=== PATIENT | female | born 1950 | race Caucasian/White ===

== ENCOUNTER → 2018-07-20 | Outpatient (CLI) | payer OTHER ==
[~2018-07-20] MED LIST: GADOBUTROL 10 ML VIAL IVP ONE
== END | disposition home or self-care (01) ==
LOC: FIMAGING 08:59
PROVIDERS: ATTEND Internal Medicine Hematology & Oncology
DX: M16.0 Bilateral primary osteoarthritis of hip (principal); M67.854 Other specified disorders of tendon, left hip; M67.853 Other specified disorders of tendon, right hip; M51.36 Other intervertebral disc degeneration, lumbar region; M47.9 Spondylosis, unspecified; C90.00 Multiple myeloma not having achieved remission
CPT/HCPCS: 73723; A9585

== ENCOUNTER 2018-10-12 05:44 | Inpatient (IN) | payer OTHER ==
[2018-10-12] MEDS ORDERED: TRANEXAMIC ACID 1,000 MG in NS 100 ML IV ONE (06:00)
[2018-10-12] MEDS ORDERED: ROPIVACAINE 0.2% 80 MG, EPINEPHrine 0.2 MG, KETOROLAC TROMETHAMINE 30 MG in SYRINGE 0 ML IU ONE (06:00)
[2018-10-12] MEDS ORDERED: POVIDONE-IODINE 20 ML in SODIUM CL IRRIG SOLUTION 500 ML IRR ONE (06:00)
[2018-10-12] MEDS ORDERED: TRANEXAMIC ACID 3,000 MG in NS (SYRINGE) 50 ML IRR ONE (06:00)
[2018-10-12] MEDS ORDERED: ONDANSETRON 4 MG/2 ML VIAL IVP ONE (06:05)
[2018-10-12] MEDS ORDERED: ACETAMINOPHEN 325 MG TAB PO ONE (06:05)
[2018-10-12] MEDS ORDERED: ceFAZolin 2 GM/DEXTROSE 100 ML IV ONE (06:05)
[2018-10-12] MEDS ORDERED: GABAPENTIN 300 MG CAP PO ONE (06:05)
[2018-10-12] MEDS ORDERED: DEXAMETHASONE 4 MG/ML VIAL IVP ONE (06:05)
[2018-10-12] MEDS ORDERED: FAMOTIDINE 20 MG TAB PO ONE (06:05)
[2018-10-12] MEDS ORDERED: LR 1,000 ML IV ONE (06:06)
[2018-10-12] MEDS ORDERED: TRANEXAMIC ACID 3,000 MG/50 ML BAG IRR ONE (06:33)
[2018-10-12] MEDS ORDERED: ceFAZolin 1 GM/5 ML SYR ONE (06:33)
[2018-10-12] MEDS ORDERED: MIDAZOLAM 2 MG/2 ML VIAL IVP ONE (06:56)
--- NOTE | 2018-10-12 06:56 | PDHPUP ---
History & Physical Update H&P update statement: This history and physical update is based on an assessment of the patient which was completed after admission or registration (within 24 hours), but prior to the surgery/procedure. H&P update: H&P reviewed & patient examined
[2018-10-12] MEDS ORDERED: MIDAZOLAM 2 MG/2 ML VIAL ONE (06:58)
--- NOTE | 2018-10-12 07:08 | PDANEPAE ---
ANE Past Medical History - Cardiovascular History Hx Hypertension: No Hx Arrhythmias: No Hx Chest Pain: No Hx Coronary Artery / Peripheral Vascular Disease: No Hx CHF / Valvular Disease: No Hx Palpitations: No - Pulmonary History Hx COPD: No Hx Asthma/Reactive Airway Disease: No Hx Recent Upper Respiratory Infection: No Hx Oxygen in Use at Home: No Hx Sleep Apnea: No Sleep Apnea Screening Result - Last Documented: Negative - Neurologic History Hx Cerebrovascular Accident: No Hx Seizures: No Hx Dementia: No - Endocrine History Hx Diabetes: No - Renal History Hx Renal Disorders: No - Liver History Hx Hepatic Disorders: No - Neurological & Psychiatric Hx Hx Neurological and Psychiatric Disorders: Yes Neurological / Psychiatric History Comment: anxiety - Cancer History Hx Cancer: Yes Cancer History Comment: Multiple myoloma stem cell transplant 2011 - Congenital Disorder History Hx Congenital Disorders: No - GI History Hx Gastrointestinal Disorders: No - Other Health History Other Health History: Protein S deficiency, DVT and PE in the past. - Chronic Pain History Chronic Pain: No - Surgical History Prior Surgeries: colonoscopy. none in last 5 yrs. tonsilectomy as child ANE Review of Systems Review of Systems: - Exercise capacity METS (RN): 4 METS ANE Patient History - Allergies Allergies/Adverse Reactions: No Known Allergies Allergy (Verified 09/12/18 14:17) - Home Medications Home medications: home medication list seen and reviewed Home Medications: Aspirin [Aspirin 81mg (*)] 81 mg PO DAILY16 09/12/18 [Last Taken 10/05/18] Herbals/Supplements -Info Only 1 ea PO DAILY 09/12/18 [Last Taken 10/05/18] Ibuprofen [Motrin (*)] 200 mg PO DAILY PRN 09/12/18 [Last Taken Unknown] Multivitamins [Multivitamin (*)] 1 each PO DAILY 09/12/18 [Last Taken 10/05/18] Sertraline HCl [Zoloft 100mg (*)] 100 mg PO HS 09/12/18 [Last Taken 10/11/18] - NPO status NPO Since - Liquids (Date): 10/11/18 NPO Since - Liquids (Time): 18:00 NPO Since - Solids (Date): 10/11/18 NPO Since - Solids (Time): 18:00 - Anes Hx Anes Hx: no prior problems - Smoking Hx Smoking Status: Never smoked - Family Anes Hx Family Hx Anesthesia Complications: none ANE Labs/Vital Signs - Labs - CBC Platelet Count: 220 - Vital Signs Blood Pressure: 114/61 Heart Rate: 56 Respiratory Rate: 15 O2 Sat (%): 95 Height: 160.02 cm Weight: 68.946 kg ANE Physical Exam - Airway Neck exam: FROM Mallampati Score: Class 1 Mouth exam: normal dental/mouth exam - Pulmonary Pulmonary: clear to auscultation - Cardiovascular Cardiovascular: regular rate and rhythym - ASA Status ASA Status: II ANE Anesthesia Plan Anesthesia Plan: spinal
[2018-10-12] MEDS ORDERED: BUPIVACAINE/DEXTROSE 7.5MG/ML 2 ML SPINAL AMP SP ONE (07:09)
[2018-10-12] MEDS ORDERED: PROPOFOL/EMULSION 500 MG/50 ML BOTTLE IV ONE (07:09)
[2018-10-12] MEDS ORDERED: ePHEDrine SULFATE 25 MG/5 ML SYR ONE (08:06)
[2018-10-12] MEDS ORDERED: PHENYLEPHRINE HCL 100 MCG/ML SYR ONE (08:07)
[2018-10-12] MEDS ORDERED: LR 500 ML IV PRN (08:36)
[2018-10-12] MEDS ORDERED: PROMETHAZINE HCL 25 MG/ML INJ IVP PRN ×2 (08:36→08:58)
[2018-10-12] MEDS ORDERED: NALOXONE HCL 0.4 MG/ML INJ IVP PRN (08:36)
[2018-10-12] MEDS ORDERED: fentaNYL 100 MCG/2 ML INJ IVP PRN (08:36)
[2018-10-12] MEDS ORDERED: PHENYLEPHRINE HCL 100 MCG/ML SYR IVP PRN (08:36)
[2018-10-12] MEDS ORDERED: METOCLOPRAMIDE 10 MG/2 ML VIAL IVP PRN ×2 (08:36→08:58)
[2018-10-12] MEDS ORDERED: MEPERIDINE 25 MG/0.5 ML AMP IVP PRN (08:36)
[2018-10-12] MEDS ORDERED: HYDROmorphONE/DILAUDID 1 MG/ML INJ IVP PRN (08:36)
[2018-10-12] MEDS ORDERED: ONDANSETRON 4 MG/2 ML VIAL IVP PRN ×2 (08:36→08:58)
--- NOTE | 2018-10-12 08:45 | POSTOPPROG ---
Post Op Note Date of Operation: 10/12/18 Surgeon: Reilly Dobson Headline Writer: Macarena Anesthesiologist: Dr. Padgett Anesthesia: IV Sedation, Spinal Post-op Diagnosis: Left hip arthritis Procedure: Left total hip arthroplasty Inf/Abcess present in the surg proc area at time of surgery?: No EBL: 100-500
[2018-10-12] MEDS ORDERED: BACITRACIN ZINC 0.5 OZ OINTTUBE TP ONE (08:50)
[2018-10-12] MEDS ORDERED: BISACODYL 10 MG SUPP PR PRN (08:58)
[2018-10-12] MEDS ORDERED: POLYETHYLENE GLYCOL 3350 17 GM PKT PO PRN (08:58)
[2018-10-12] MEDS ORDERED: DIPHENOXYLATE/ATROPINE LOMOTIL 1 TAB PO PRN (08:58)
[2018-10-12] MEDS ORDERED: PROMETHAZINE HCL 25 MG SUPPR PR PRN (08:58)
[2018-10-12] MEDS ORDERED: CYCLOBENZAPRINE 10 MG TAB PO PRN (08:58)
[2018-10-12] MEDS ORDERED: ONDANSETRON DISINTEGRATING 4 MG TAB PO PRN (08:58)
[2018-10-12] MEDS ORDERED: traMADol 50 MG TAB PO PRN (08:58)
[2018-10-12] MEDS ORDERED: diphenhydrAMINE 25 MG CAP PO PRN (08:58)
[2018-10-12] MEDS ORDERED: LACTULOSE 20 GM/30 ML UDCUP PO PRN (08:58)
[2018-10-12] MEDS ORDERED: MAGNESIUM HYDROXIDE 30 ML UDCUP PO PRN (08:58)
[2018-10-12] MEDS ORDERED: oxyCODONE IR 5 MG TAB PO PRN (08:58)
[2018-10-12] MEDS ORDERED: NS 500 ML IV PRN (08:58)
[2018-10-12] MEDS ORDERED: LR 1,000 ML IV SCH (09:00)
--- NOTE | 2018-10-12 10:04 | POSTANESTH ---
Post Anesthetic Evaluation Cardiovascular Status: Normal, Stable Respiratory Status: Normal, Stable Level of Consciousness/Mental Status: Can Participate in Eval Pain Control: Adequate, Prn Tx Ordered Nausea/Vomiting Control: Adequate, Prn Tx Ordered Complications Possibly Related to Anesthesia: None Noted
--- NOTE | 2018-10-12 11:02 | GOP ---
[f rep st] OPERATIVE REPORT DATE OF OPERATION: 10/12/2018 SURGEON: Reilly Dobson MD INDUSTRIAL TRACTOR DRIVER: 1. Sonido Gibbs, PAC. 2. Andrés Yoder NURSES EDUCATOR. ANESTHESIA: A combination of Marcaine, spinal and IV sedation. ANESTHESIOLOGIST: Whitney Padgett MD. PREOPERATIVE DIAGNOSIS: Left hip arthritis. POSTOPERATIVE DIAGNOSIS: Left hip arthritis. PROCEDURE PERFORMED: 10/12/2018, a left total hip arthroplasty, ceramic femoral head on highly cross -linked polyethylene cup liner. FINDINGS: ESTIMATED BLOOD LOSS: About 300 mL. DESCRIPTION OF PROCEDURE: The patient was given 2 g of IV Ancef preoperatively within 60 minutes of surgery. She also received 1000 mg of IV tranexamic acid preoperatively. She was placed on the oper ating room table and given spinal anesthesia with Marcaine by Dr. Whitney Padgett. She was then placed supin e and given IV sedation. A Blanco catheter was not used. She wore a RAMOS stocking and SCD on the nono perative leg. She was rolled to the right lateral decubitus position. The position was secured with the pegboard table attachment. An axillary roll was used and all pressure points were carefully pad ded. I was careful to lock her pelvis in a vertical position. Her perineum was isolated with plasti c adhesive drapes. Her left hip and left lower extremity were prepped with ChloraPrep. They were dr aped free using sterile sheets, stockinette and Ioban plastic drapes. The [employer] time-out was performed to verify the correct patient identity and the c orrect surgical side and site. The [place] time-out was also performed. I made a 5-inch straight oblique posterolateral hip skin incision. The subcutaneous tissues were sha rply divided and hemostasis was obtained using electrocautery. Her fascia nevin was identified and sp lit along the axis of its fibers. I then curved posteriorly and proximally and split the fascia of t he gluteus katy and bluntly split the muscle fibers in line with their orientation. The Charnley self-retaining retractor was inserted. Her sciatic nerve was located, partially exposed and protecte d throughout the procedure. The external rotators and the posterior hip capsule were divided as sepa rate layers at the base of the femoral neck, tagged and reflected posteriorly. A smooth, [facility] was inserted vertically into the ilium, superior to the acetabulum. A 1/8-inch drill bit was inserted vertically into the greater trochanter and parallel to the first pin. The distance bet ween the two was measured for leg length reference. Her femoral head was dislocated posteriorly. Se chrissie degenerative changes were present on the head. Her femoral neck was osteotomized at the appropr iate level and inclination. I was careful to preserve all the posterior capsule and most of the anterior capsule. The remnant of her damaged labrum was excised. I prepared the femur first. This allowed me to rock breaker the amount of natural femoral neck anteversion. This, in turn, allowed me to later determine the correct amount of cup anteversion. She had approx imately 15 degrees of natural femoral neck anteversion. The canal was first opened laterally with a box chisel. I used the starter reamer on power. I then hand broached sequentially up to size 4. Th e size 4 high-offset Accolade II broach was used as a trial stem. I was careful to lateralize adequa tely. Appropriate retractors were inserted to expose her acetabulum. The acetabulum was reamed sequentiall y up to 54 mm. I selected a 54 mm [place] Tritanium Trident II cluster hole hemispherical shell. Th is was tapped securely into place in the proper degree of inclination and anteversion. I used the tr ansverse acetabular ligament and other acetabular bony landmarks to help me properly orient the cup. I inserted two 30 mm supplemental fixation screws through the shell. I performed a series of trial reductions to determine length and stability. I obtained an intraopera tive cross-table AP pelvis x-ray. I concluded that the size 4 stem with high offset with the -5 mm n jose and a 36 mm head with a 0 degree trial liner gave me the proper combination of appropriate length and good anterior and posterior stability. The 0-degree Arlette X3 highly cross-linked polyethylene liner was inserted and tapped securely into place. The [place] Accolade II stem in size 4 with high offset was inserted press-fit and was very t ight. I did 1 final trial reduction and confirmed that the -5 mm neck length with a 36 mm head was t he proper combination. The [place] Biolox Delta ceramic head with an outside diameter of 36 mm and a neck length of -5 mm was tapped securely onto the clean trunnion. The acetabulum was irrigated, ananda aned and the hip was reduced 1 final time. She had excellent anterior and posterior stability and ap propriate length. Forty milliliters of the joint anesthetic cocktail was injected into the capsule, the deep musculatur e and the subcutaneous tissues along the skin edges. The joint was thoroughly irrigated one final ti me with a dilute Betadine solution. Her sciatic nerve was reinspected and looked unharmed. Fifty mi lliliters of tranexamic acid solution was irrigated into the wound and left in place. The external r otators and the posterior hip capsule were repaired in separate layers with #2 FiberWire sutures thro ugh drill holes in the greater trochanter. This provided a strong posterior capsule and external rot ator repair. Her fascia nevin was closed first with 2 interrupted [id number] #2 FiberWire suture s followed by a running #2 barbed Ethicon Stratafix PDO suture. The subcutaneous tissues were closed in layers starting with some interrupted 2-0 Monocryl sutures followed by a running 0 barbed Ethicon Stratafix Monoderm suture. The skin was closed with a running 3-0 barbed Ethicon Stratafix Monoderm subcuticular suture. The skin edges were reapproximated and sealed with Dermabond glue. The wound was covered with a large Mepilex waterproof dressing. A sterile Mepilex sacral dressing was applied. A long-leg RAMOS stocking and SCD were applied to her left lower extremity. She wore a stocking and SC D on the opposite leg during the procedure. An abduction pillow was placed between her knees. She w as awakened from anesthesia and rolled to the supine position on her [facility]. She was taken to PACU in satisfactory condition. There were no recognized intraoperative complications. SURGEON: Reilly Dobson MD. COUNTS: The sponge and needle counts were correct on 2 occasions. IMPLANTS: I used a Arlette Trident II Tritanium hemispherical cluster hole acetabular shell with an outside diameter of 52 mm. The liner was a Arlette X3 0-degree highly cross-linked liner with an ins rachele diameter 36 mm. The femoral component was a high-offset Accolade II stem in a size 4 and press-f it. The femoral head was a [place] Biolox Delta ceramic head with a -5 mm neck length and a 36 mm ou tside diameter. Romel Gibbs and Andrés Yoder acted as surgical assistants. Their assistance was a medical necess ity for safe completion of the procedure. Copy requested to: Tello Mcginnis /[id number]/MODL
--- NOTE | 2018-10-12 12:49 | PDMN ---
Medical Necessity Medical necessity: [facility] IP only surgery; cpt 29185 L TREVON
[2018-10-12] MEDS: KETOROLAC 15 MG/1 ML SDV IVP SCH ×2 (13:10→18:41)
[2018-10-12] MEDS: SENNOSIDES/DOCUSATE SODIUM TAB PO SCH ×2 (13:17→20:41)
[2018-10-12] MEDS: ACETAMINOPHEN 325 MG TAB PO SCH ×2 (13:17→20:41)
[2018-10-12] MEDS: ceFAZolin 2 GM/DEXTROSE 100 ML IV SCH (13:20)
[2018-10-12] MEDS: FAMOTIDINE 20 MG TAB PO SCH (20:41)
[2018-10-12] MEDS ORDERED: SERTRALINE HCL 100 MG TAB PO SCH (21:00)
[2018-10-13] MEDS: KETOROLAC 15 MG/1 ML SDV IVP SCH ×2 (00:17→05:28)
[2018-10-13] MEDS: ceFAZolin 2 GM/DEXTROSE 100 ML IV SCH (00:22)
[2018-10-13] MEDS: ACETAMINOPHEN 325 MG TAB PO SCH ×2 (04:54→09:26)
[2018-10-13] MEDS ORDERED: FERROUS SULFATE 325 MG TAB PO SCH (08:00)
[2018-10-13] MEDS ORDERED: RIVAROXABAN 10 MG TAB PO SCH (09:00)
--- NOTE | 2018-10-13 09:05 | SOAPPROG ---
SOAP Progress Note Assessment/Plan: Assessment: POD #1, s/p TREVON Awake, alert, afebrile. Normal sciatic nerve function. H/H ok. VSS. OOB yesterday w/ PT. Mild pain/soreness of lateral hip. Dressing clean and dry. Post op films look good. Plan: PT/OT today. D/c to home later today. Xarelto, Celebrex, tylenol, tramadol, oxy for home rx. F/u in 3 weeks as planned. Start OP PT next week. 10/13/18 09:02 Objective: Vital Signs Temp Pulse Resp BP Pulse Ox 36.8 C 67 16 129/58 H 94 10/13/18 04:00 10/13/18 04:00 10/13/18 04:00 10/13/18 04:00 10/13/18 04:00 Laboratory Results 10/13/18 05:00 10/12/18 10/13/18 10/14/18 05:59 05:59 05:59 Intake Total 1275 Output Total 3000 Balance -1725 ICD10 Worksheet Patient Problems: Problems Problem Status Onset Osteoarthritis of left hip Acute
[2018-10-13 09:17] VITALS: BP 109/71
[2018-10-13] MEDS: FAMOTIDINE 20 MG TAB PO SCH (09:26)
[2018-10-13] MEDS: SENNOSIDES/DOCUSATE SODIUM TAB PO SCH (09:34)
--- NOTE | 2018-10-13 11:40 | ASMTLACE ---
GUTIERREZE Length of stay for Answers: 2 days current admission Acuity / Level of Answers: Yes Care: Did the patient have an inpatient admission? Comorbidities - select Answers: Other Notes: DVT/PE all that apply # of Emergency department Answers: 0 visits in the last 6 months Social determinants Answers: Mental health diagnosis (anxiety, depression, pers onality disorders, etc.) Score: 9 Date Signed: 10/13/2018 11:39 AM Electronically Signed By:ELIZABETH Gregg
--- NOTE | 2018-10-13 11:42 | ASMTCMCOM ---
CM Note CM Note Notes: Pt had planned hip surgery, resides with spouse. PT and MD rec outpatient PT. No CM d/c needs identified. Date Signed: 10/13/2018 11:41 AM Electronically Signed By:ELIZABETH Gregg
== END 2018-10-13 12:42 | disposition home or self-care (01) | DRG 470 ==
LOC: F3N 05:44
PROVIDERS: ADMIT Orthopaedic Surgery; ATTEND Orthopaedic Surgery
PROC: 0SRB04A Replacement of Left Hip Joint with Ceramic on Polyethylene Synthetic Substitute, Uncemented, Open Approach (ICD-10-PCS; principal; 2018-10-12 07:15)
DX: M16.12 Unilateral primary osteoarthritis, left hip (principal); C90.00 Multiple myeloma not having achieved remission; D68.59 Other primary thrombophilia; F41.9 Anxiety disorder, unspecified; Z86.711 Personal history of pulmonary embolism; Z86.718 Personal history of other venous thrombosis and embolism
CPT/HCPCS: 97110-GP; 97116-GP; 97161-GP; 97165-GO; 97535-GO; C1713; J0171; J0690; J1100; J1885; J2250; J2370; J2405; J2704; J2795